=== PATIENT | female | born 1995 | race Caucasian/White ===

== ENCOUNTER → 2016-10-20 | Outpatient (CLI) | payer OTHER ==
[2016-10-20 10:13] LABS: BASOPHILS # (AUTO) 0.02 10*3/UL; BASOPHILS % (AUTO) 0.2 % (0-1); EOSINOPHILS % (AUTO) 3.3 % (0-8); HEMATOCRIT 42.7 % (37.0-47.0); HEMOGLOBIN 14.5 g/dL (12.0-16.0); IMM GRAN % (AUTO) 0.2 % (0-5); IMM GRAN# (AUTO) 0.02 10*3/UL; LYMPHOCYTES # (AUTO) 1.44 10*3/uL; LYMPHOCYTES % (AUTO) 15.3 % (10-50); MEAN CORPUSCULAR HEMOGLOBIN 30.5 PG (27-31); MEAN PLATELET VOLUME 9.7 FL (7.4-12.2); MONOCYTES # (AUTO) 0.67 10*3/UL (0.3-0.8); MONOCYTES % (AUTO) 7.1 % (5-15); NEUTROPHILS # (AUTO) 6.98 10*3/UL; NEUTROPHILS % (AUTO) 73.9 % (50-80); RED BLOOD COUNT 4.76 10^6/uL (4.20-5.40); WHITE BLOOD COUNT 9.44 10^3/uL (4.8-10.8)
[2016-10-20 10:17] LABS: PLATELET MORPHOLOGY COMMENT NORMAL MORPHOLOGY (NORM)
[2016-10-20 10:19] LABS: BLOOD UREA NITROGEN 9 mg/dL (7-22); BUN/CREATININE RATIO 12.85 (6-20); CALCIUM 9.3 mg/dL (8.7-10.7); CHLORIDE 106 meq/L (98-112); CREATININE 0.7 mg/dL (0.50-1.20); EST GLOMERULAR FILTRATION > 60 (>60 ml/min/1.73m(2)); GLUCOSE 90 mg/dL (78-110); POTASSIUM 4.1 meq/L (3.8-5.2); SODIUM 139 meq/L (135-145)
--- NOTE | 2016-10-20 10:54 | DI ---
HISTORY: Low abdominal pain. Pain with urination. COMPARISON: None available. FINDINGS: Supine and upright view examination reveals the bowel gas pattern to be unremarkable with no definite evidence of bowel obstruction and no free air in the peritoneal cavity. No abnormal calc ifications are noted. IMPRESSION: 1. No definite evidence of bowel obstruction and no free air in the peritoneal cavity. Clinical corre lation is requested. 2. No abnormal calcifications are noted.
== END ==
LOC: MOB RAD 09:12
PROVIDERS: ATTEND Physician Assistant Medical
DX: R10.84 Generalized abdominal pain (principal); R30.0 Dysuria
CPT/HCPCS: 36415; 74020; 80048; 85025; 87088

== ENCOUNTER → 2016-11-13 | Outpatient (CLI) | payer OTHER ==
--- NOTE | 2016-11-13 10:43 | DI ---
GALLBLADDER AND LIVER ULTRASOUND, 11/13/2016 9:02 AM: Clinical History: Lower abdominal pain. Previous Exam: None at this facility. Technique: Scans are performed through the right upper quadrant in multiple projections. The patient was rolled from side to side and the gallbladder was balloted with the probe to facilitate visualizat ion of small gallstones. The gallbladder is well distended and has a normal wall thickness. There are no gallstones. The commo n bile duct measures 4 mm. The pancreas is visualized from the head to the body and is normal. The vi sualized portions of the liver, right kidney, and IVC are normal. The aorta is normal. Readin. Normal gallbladder ultrasound. 2. The liver, right kidney, pancreas, IVC, and aorta are also normal.
== END ==
LOC: US 11-08 10:56
PROVIDERS: ATTEND Nurse Practitioner Family
DX: R10.84 Generalized abdominal pain (principal); F17.210 Nicotine dependence, cigarettes, uncomplicated
CPT/HCPCS: 76705

== ENCOUNTER → 2016-11-29 | Outpatient (CLI) | payer OTHER ==
[2016-11-29 13:39] LABS: URINE SPECIFIC GRAVITY - MAN 1.018
--- NOTE | 2016-11-29 16:57 | DI ---
Tc-99 HIDA BILIARY SCAN WITH FATTY MEAL CHALLENGE, 11/29/2016 1:00 PM : Clinical History: Lower abdominal pain. Previous Related Exam: Gallbladder ultrasound, 11/13/2016. Prior to performing the study, the patient was given a preparatory meal. The patient was injected wit h 6 mCi of Tc-99 Choletec, a HIDA compound. An anterior dynamic flow study was performed followed by sequential anterior imaging at one minute intervals out to 60 minutes. The patient was then given a 3 8 gm fatty challenge and sequential anterior imaging at one minute intervals was carried out to 60 mi nutes for the gall bladder ejection phase. The patient did experience symptoms following the preparat ory meal and the fatty meal challenge. For symptoms with both meals consisted of lower abdominal pain . Gall bladder ejection fraction was calculated to be 84 %. Readin. Normal excretory Tc-99 HIDA biliary kinetics. 2. Normal gallbladder ejection fraction of 84%. 3. The patient complained of lower abdominal pain both with the preparatory meal and the fatty meal challenge. The significance of these complaints is uncertain because of the normal biliary kinetics a nd normal gallbladder ejection fraction.
== END ==
LOC: NM 13:03
PROVIDERS: ATTEND Nurse Practitioner Family
DX: R10.84 Generalized abdominal pain (principal); N91.2 Amenorrhea, unspecified
CPT/HCPCS: 78226; 84703; A9537

== ENCOUNTER 2016-12-08 09:13 | Day surgery (SDC) | payer OTHER ==
[~2016-12-08 09:13] MED LIST: LIDOCAINE W/ SODIUM BICARB 0.5 ML SYR ONE; Lactated Ringers 1,000 ML PRIMARY IV ONE
[2016-12-08 09:33] LABS: URINE SPECIFIC GRAVITY - MAN 1.025
[2016-12-08 09:44] VITALS: RESP 14; TEMP 96.9
--- NOTE | 2016-12-08 10:51 | GEN.OPNOTE ---
EGD / Colonoscopy Report Surgery Date: 12/08/16 Preoperative Diagnosis: Central abdominal pain. Change in bowel habits. Constipation. Gastroesophageal reflux disease. Postoperative Diagnosis: Same. Procedure: #1 esophagogastroduodenoscopy with biopsy. #2 complete colonoscopy. Surgeon: Kale Hopkins MD Anesthesia Provider: Kristan Jewell CRNA Anesthesia Type: MAC Indications: See preoperative diagnosis. CT abdomen and pelvis normal 3 years ago. Recent ultrasound and HIDA scan unremarkable. Recent lab work normal. Proceed with upper and lower endoscopy for undiagnosed abdominal pain. EGD Findings: Esophagus: [Normal] GE Junction : [Normal] Fundus : [Normal] Body : [Normal] Prepyloric : [Normal] Small Intestine : [Normal] A lubricated flexible upper endoscope was inserted and passed through the esophagus and stomach into the duodenum. The duodenum and duodenal bulb were unremarkable. Pyloric channel was widely patent. Entire stomach was visually normal. Antral biopsies were taken with her recent reflux. There was aspirated. The scope was withdrawn into the distal esophagus. With her history of reflux biopsies were taken at and above the Z line. Hemostasis was assured. The scope was withdrawn through the remainder of a normal-appearing esophagus hypopharynx under suction completing that portion of the procedure. Colonoscopy Findings: Prep : [Very good] Cecum : [Normal] Ascending : [Normal] Transverse : [Normal] Sigmoid : [Normal] Rectum : [Normal] Digital Rectal Exam : [Normal] A lubricated flexible colonoscope was inserted and passed to the blind end of the cecum. The blind end of the cecum and ileocecal valve were clearly seen. Air was aspirated as the scope was withdrawn. The entire colonoscopy was normal without polyp, tumor, neoplastic mass, infectious or inflammatory process. The scope was withdrawn completing the procedure. The patient tolerated all aspects of the procedure well without complication. She was taken to outpatient surgery in stable condition. Follow-up will be in my office next week to discuss the biopsies and plan further workup as indicated. Consider CT scan abdomen and pelvis with oral and IV contrast.
== END 2016-12-08 11:40 | disposition home or self-care (01) ==
LOC: SDSC 09:13
PROVIDERS: ATTEND Surgery
DX: K21.9 Gastro-esophageal reflux disease without esophagitis (principal); K59.00 Constipation, unspecified
CPT/HCPCS: 43239; 45378; 84703; J2704; J7120

== ENCOUNTER → 2016-12-20 | Outpatient (CLI) | payer OTHER ==
--- NOTE | 2016-12-20 10:34 | DI ---
CT ABDOMEN SCAN WITH IV CONTRAST, 12/20/2016 8:13 AM : Clinical History: Generalized abdominal pain. Previous Exam: 09/16/2013. Scans are performed from the lower lung bases through the liver and kidneys with IV contrast. 75 ml o f Isovue 300 was injected IV. Low density oral barium contrast (Volumen - low density CT enterography oral contrast) was administered for all phases of the exam. The lung bases are clear. The liver is normal. The gallbladder is grossly normal. There is no abnorma lity of the spleen, pancreas, and adrenal glands. Both kidneys are normal in size, shape, position an d contour. There is no hydronephrosis or hydroureter. No renal or ureteral calculi are present. There are no abnormal retrocrural or periaortic nodes. No ascites is present. READING: Normal CT abdomen scan. CT PELVIS SCAN WITH IV CONTRAST, 12/20/2016 8:13 AM: Clinical History: See above. Previous Exam: 09/16/2013. Scans are performed from just superior to the umbilicus to the symphysis pubis with IV contrast. This is the same bolus of contrast used for the CT scans of the abdomen. Scans through the lower abdomen and pelvis show no masses or abnormal fluid collections. There is no adenopathy. The appendix is normal. The small bowel, terminal ileum, and ileocecal valve are normal. The colon is also normal. There are no hernias. The uterus and right ovary are normal. There is a 35 mm spherical low density lesion of the left ovary consistent with a left ovarian cyst. READING: Except for what probably represents a 35mm left ovarian cyst, the exam is normal.
== END ==
LOC: CT 07:51
PROVIDERS: ATTEND Surgery
DX: R10.84 Generalized abdominal pain (principal); N83.202 Unspecified ovarian cyst, left side
CPT/HCPCS: 74177

== ENCOUNTER 2019-02-03 00:03 | Inpatient (IN) ==
[2019-02-03] MEDS ORDERED: CefOXitin Inj 2 GM in Sodium Chloride 0.9% 100 ML IV PRN (00:06)
[2019-02-03] MEDS ORDERED: fentaNYL Inj 100 MCG/2 ML VIAL IV PRN (00:06)
[2019-02-03] MEDS ORDERED: Zolpidem Tab 5 MG TAB PO PRN (00:06)
[2019-02-03] MEDS ORDERED: LIDOCAINE W/ SODIUM BICARB 0.5 ML SYR SUBD PRN (00:06)
[2019-02-03] MEDS ORDERED: BUTORPHANOL TARTRATE 2 MG/1 ML VIAL IVP PRN ×2 (00:06→08:56)
[2019-02-03] MEDS ORDERED: MISOPROSTOL 200 MCG TABLET RECTAL PRN (00:06)
[2019-02-03] MEDS ORDERED: diphenhydrAMINE 50 MG/1 ML VIAL IVP PRN ×3 (00:06→16:54)
[2019-02-03] MEDS ORDERED: Lidocaine 1% 10 MG/ML - 20 ML VIAL SUBCUT PRN (00:06)
[2019-02-03] MEDS ORDERED: OXYTOCIN 10 UNIT/1 ML IM PRN (00:06)
[2019-02-03] MEDS ORDERED: ePHEDrine Inj 50 MG/ML AMP IVP PRN ×2 (00:06→08:56)
[2019-02-03] MEDS ORDERED: Carboprost Inj 250 MCG/ML AMP IM PRN (00:06)
[2019-02-03] MEDS ORDERED: Naloxone Inj 0.01 MG in Sodium Chloride 0.9% vial 1 ML IVP PRN ×2 (00:06→08:56)
[2019-02-03] MEDS ORDERED: METHYLERGONOVINE MALEATE 0.2 MG/1 ML VIAL IM PRN (00:06)
[2019-02-03] MEDS ORDERED: LIDOCAINE HCL 2 % 10 ML JELLY URO-JECT TOPICAL PRN ×2 (00:06→16:54)
[2019-02-03] MEDS ORDERED: TERBUTALINE SULFATE 1 MG/1 ML SDV SUBCUT PRN (00:06)
[2019-02-03] MEDS ORDERED: FAMOTIDINE 20 MG/2 ML VIAL IVP PRN ×2 (00:06)
[2019-02-03] MEDS ORDERED: Phenylephrine Inj 50 MCG in Sodium Chloride 0.9% vial 0.5 ML IVP PRN ×2 (00:06→08:56)
[2019-02-03] MEDS ORDERED: NALOXONE 0.4 MG/1 ML VIAL IVP PRN ×2 (00:06→08:56)
[2019-02-03] MEDS ORDERED: Metoclopramide Inj 10 MG/2 ML VIAL IV PRN (00:06)
[2019-02-03] MEDS ORDERED: CALCIUM CARBONATE 500 MG (TUMS) CHEWABLE TABLET PO PRN ×2 (00:06→16:54)
[2019-02-03] MEDS ORDERED: CITRIC ACID/SODIUM CITRATE 30 ML CUP PO PRN (00:06)
[2019-02-03] MEDS ORDERED: ONDANSETRON 4 MG/2 ML VIAL IVP PRN ×2 (00:06→16:54)
[2019-02-03] MEDS ORDERED: Nalbuphine Inj 20 MG/ML Ampule IVP PRN ×3 (00:06→16:54)
[2019-02-03] MEDS ORDERED: Oxytocin 20 Units + LR 20 UNIT/1,000 ML BAG IV SCH ×3 (00:15→16:54)
[2019-02-03] MEDS ORDERED: Misoprostol Tab 100 MCG TAB VAGINAL PRN (00:30)
[2019-02-03 01:17] LABS: Hematocrit [HCT] 35.3 % (37.0-47.0); Hemoglobin [HGB] 12.3 g/dL (12.0-16.0); MEAN CORPUSCULAR HEMOGLOBIN 32.3 PG (27-31); MEAN CORPUSCULAR HGB CONC 34.8 g/dL (33-37); MEAN CORPUSCULAR VOLUME 92.7 FL (81-99); MEAN PLATELET VOLUME 11.2 FL (7.4-12.2); RED BLOOD COUNT 3.81 10^6/uL (4.20-5.40)
[2019-02-03] MEDS: Lactated Ringers-OB Dept 1,000 ML PRIMARY IV SCH ×2 (05:29→08:17)
[2019-02-03] MEDS ORDERED: Lidocaine/Epi Inj 1.5% 5 ML AMPUL EPIDURAL ONE (08:24)
[2019-02-03] MEDS ORDERED: Fent/Bupiv 2mcg/0.0625% Epid 250 ML ONE (08:25)
[2019-02-03] MEDS ORDERED: fentaNYL 2 MCG/BUPIVACAINE 0.0625%/NS 0.9% 250 ML BAG EPIDURAL ONE (08:57)
--- NOTE | 2019-02-03 09:00 | CRNA.PROGR ---
Anesthesia Time - Procedure/Recovery Time Start Date: 02/03/19 End Date: 02/03/19 Anesthesia : Time In: 08:20 Anesthesia : Time Out: 14:46 Anesthesia : Total Time: 386 - Total Anesthesia Time Total Anesthesia Time (minutes): 386 - Other Weight: 68.492 kg Height: 5 ft 2 in Body Mass Index (BMI): 27.6 Physical Status: P2 Anesthesia Type: Epidural Obstetrics: Planned vaginal delivery w/ neuraxial labor anesthesia/analog
--- NOTE | 2019-02-03 09:00 | CRNA.PROCE ---
Central Neuraxis Block Placemt - - Safety Measures: Site Verified - - Type of Block: Epidural Reason for Block: Analgesia Moniters Used During Block: SPO2, NIBP Skin Prep Used: Betadine Draped: Yes Skin Infiltration - Enter Amount Used in Comment Field: 1% Xylocaine (mL): Yes (1.5) Introducer User: 18 Gauge Fidel Local Anesthetic - Enter Amount Used in Comment Field: 1.5 % Xylocaine with Epinephrine 1:200,000 (mL): Yes (4 ml) Number of Centimeters Catheter Threaded: 3.5 Bioclusive Dressing Applied: Yes (skin prep under all adhesive) - - Additional Details: equal spread with test dose. Infusuin started at 850 with 10 ml loading dose. Settings verified with Armida MACIAS. Received no further report or complaints from OB dept. until after infant born. Anesthesia Time - Other Weight: 68.492 kg Height: 5 ft 2 in Body Mass Index (BMI): 27.6
[2019-02-03] MEDS ORDERED: ACETAMINOPHEN 325 MG TABLET PO PRN (16:54)
[2019-02-03] MEDS ORDERED: GLYCERIN/WITCH HAZEL 1 BOX TOPICAL PRN (16:54)
[2019-02-03] MEDS ORDERED: diphenhydrAMINE 25 MG CAPSULE PO PRN (16:54)
[2019-02-03] MEDS ORDERED: LANOLIN HPA 40 GM TUBE TOPICAL PRN (16:54)
[2019-02-03] MEDS ORDERED: HYDROcodone-APAP 5 MG -325 MG TABLET PO PRN (16:54)
[2019-02-03] MEDS ORDERED: DIPH,PERTUSS,TET(ADACEL) VAC/PF 0.5 ML (Tdap) IM ONE (16:54)
[2019-02-03] MEDS ORDERED: BENZOCAINE/MENTHOL SPRAY 56 GM BOTTLE TOPICAL PRN (16:54)
[2019-02-03] MEDS ORDERED: Ondansetron ODT Tab 4 MG TAB PO PRN (16:54)
[2019-02-03] MEDS ORDERED: Lidocaine 1% 10 MG/ML - 20 ML VIAL INTRADERM PRN (16:54)
[2019-02-03] MEDS: IBUPROFEN 800 MG TABLET PO PRN (18:46)
[2019-02-04 04:46] LABS: Hematocrit [HCT] 32.3 % (37.0-47.0); Hemoglobin [HGB] 10.8 g/dL (12.0-16.0); MEAN CORPUSCULAR HEMOGLOBIN 31.4 PG (27-31); MEAN CORPUSCULAR HGB CONC 33.4 g/dL (33-37); MEAN CORPUSCULAR VOLUME 93.9 FL (81-99); MEAN PLATELET VOLUME 10.5 FL (7.4-12.2); RED BLOOD COUNT 3.44 10^6/uL (4.20-5.40)
[2019-02-04] MEDS: Lactated Ringers-OB Dept 1,000 ML PRIMARY IV SCH (06:21)
[2019-02-04] MEDS: IBUPROFEN 800 MG TABLET PO PRN (08:36)
[2019-02-04] MEDS ORDERED: Prenatal Multivitamin Tab 1 TAB TAB PO SCH (09:00)
[2019-02-04] MEDS ORDERED: DOCUSATE 100 MG CAPSULE PO SCH (09:00)
[2019-02-04 12:56] VITALS: BP 126/79; RESP 18; TEMP 97.8; O2SAT 99
--- NOTE | 2019-02-20 15:04 | OB.DEL.SUM ---
Delivery Note Delivery Summary: Pt is a 23 yo G2 now P2 at 39 weeks who presented for elective induction of labor at term. She received 2 doses of cytotec and was 3/80/-1 this morning at 0800. Pitocin augmentation was started. Amniotomy was completed with return of clear fluid. She progressed, under epidural anesthesia, to c/c/+1 at 1420. She began pushing a short time later and delivered a viable female over an intact perineum at 1437. There was no nuchal cord. Baby's nose and mouth were suctioned with the bulb suction and the cord was doubly clamped by myself allowing for 60 seconds of delayed cord clamping. The cord was cut by the father of the baby. Baby was placed on mom's chest. Cord blood and cord gases were obtained. The placenta delivered spontaneously and intact a short time later. 20 mU of pitocin were infused. The vagina and perineum were examined and a first degree vaginal and perineal laceration was noted and repaired in the normal fashion with 3-0 vicryl rapide suture. There was excellent hemostasis. No other lacerations were noted. Baby weighed 5#8oz and was 18.25 inches long. Apgars were 9 at 1 minute and 9 at 5 minutes. EBL 300 cc. Both mom and baby tolerated delivery well and are in stable condition at this time.
--- NOTE | 2019-02-20 15:09 | OB.PROGRES ---
Subjective Post Day: 1 Pain Management: PO Lacey Catheter: No Flatus: No Lochia Color: Rubra/Red Scant < 10 ml Diet: Regular [place] Feeding Method: Exculsively Ambulating: Yes Objective - General General Appearance: POSITIVE: No Acute Distress, Cooperative - Cardiovacular Cardiovascular Exam: POSITIVE: RRR, No Murmur Edema: +1 Pedal Edema Extremities: Negative Susan's - Bilaterally - Respiratory Respiratory Exam: POSITIVE: Clear to Auscultation - Bilaterally, Breathing Non Labored - Reflexes Clonus (indicate extremity in comment field): Absent Assesstment / Plan (1) Normal spontaneous vaginal delivery Status: Acute Assessment / Plan: DISCHARGE NOTE: Admitting diagnosis: term , elective induction of labor Discharge diagnosis: same, delivered. Outcome: normal spontaneous vaginal delivery Diet: regular. f/u: 6 week check. Disposition: home.
== END 2019-02-04 16:07 | disposition home or self-care (01) | DRG 807 ==
LOC: OBIP 00:03
PROVIDERS: ADMIT Family Medicine; ATTEND Family Medicine